=== PATIENT | female | born 1980 | race Caucasian/White ===

== ENCOUNTER 2017-10-26 07:20 | Emergency (ER) | payer MEDICAID ==
[2017-10-26] MEDS ORDERED: Ketorolac 60 MG/2 ML SDV IM ONE (07:41)
[2017-10-26] MEDS ORDERED: Ondansetron 8 MG Tab.DIS PO ONE (07:44)
[2017-10-26] MEDS ORDERED: Sodium Chloride 0.9% 1,000 ML IV ONE (08:17)
[2017-10-26] MEDS ORDERED: Acetaminophen Soln 650 MG/20.3 ML UD Cup PO ONE (08:18)
--- NOTE | 2017-10-26 09:34 | EDM.PDOC ---
ED HPI GENERAL MEDICAL PROBLEM - General Chief Complaint: Back Pain or Injury Stated Complaint: BACK PAIN Time Seen by Provider: 10/26/17 07:36 Source of Information: Reports: Patient, EMS History Limitations: Reports: Physical Impairment (back pain, not feeling good) - History of Present Illness INITIAL COMMENTS - FREE TEXT/NARRATIVE: 37 y.o.w.f, former drug addict, came to the ed deu to back pain and not feeling good. No trauma, patient vomited once [employer] and poor po intake in the past few days. Pt is a poor historian, no family is present. Pt was shouting occ in the room wanting food. She denied taking any drugs at this time. BP 138/74 Pulse 113 Temp 38.4 RR 24 Pulse ox 97% on RA Onset Date: 10/25/17 Onset Time: 08:00 Duration: Hour(s):, Getting Worse, Intermittent Location: Reports: Back, Generalized Quality: Reports: Ache, Burning, Dull, Pressure, Same as Previous Episode Improves with: Reports: None Worsens with: Reports: None Context: Reports: Sick Contact Associated Symptoms: Reports: Nausea/Vomiting back Pain Score (Numeric/FACES): 10 - Related Data Allergies Allergy/AdvReac Type Severity Reaction Status Date / Time No Known Allergies Allergy Verified 10/26/17 07:34 Home Meds: Home Meds . [Unable to Verify Home Med List] 10/26/17 [History] Past Medical History Psychiatric History: Reports: Addiction Social & Family History - Tobacco Use Smoking Status *Q: Former Smoker Used Tobacco, but Quit: Yes Month Tobacco Last Used: 10/18 - Caffeine Use Caffeine Use: Reports: None - Recreational Drug Use Recreational Drug Use: Yes Drug Use in Last 12 Months: No Recreational Drug Type: Reports: Methamphetamine ED ROS GENERAL - Review of Systems Review Of Systems: See Below Constitutional: Reports: No Symptoms HEENT: Reports: No Symptoms Respiratory: Reports: No Symptoms Cardiovascular: Reports: No Symptoms Endocrine: Reports: No Symptoms GI/Abdominal: Reports: No Symptoms : Reports: No Symptoms Musculoskeletal: Reports: No Symptoms Skin: Reports: No Symptoms Neurological: Reports: No Symptoms Psychiatric: Reports: No Symptoms Hematologic/Lymphatic: Reports: No Symptoms Immunologic: Reports: No Symptoms ED EXAM, UPPER BACK/NECK PAIN - Physical Exam Exam: See Below Exam Limited By: No Limitations General Appearance: Alert, WD/WN, Mild Distress, Obese Eye Exam: Bilateral Eye: Normal Inspection Ears Exam: Normal External Exam, Normal Canal Nose Exam: Normal Inspection, Normal Mucousa, No Blood Throat/Mouth Exam: Normal Inspection, Normal Lips, Normal Voice, No Airway Compromise Head Exam: Atraumatic, Normocephalic Neck Exam: Non-Tender, Full Range of Motion, Normal Alignment, Normal Inspection Cardiovascular/Respiratory: Regular Rate, Rhythm, No M/R/G, Normal Peripheral Pulses GI/Abdominal: Normal Bowel Sounds, Soft, Non-Tender, No Organomegaly, No Abnormal Bruit, No Mass, Pelvis Stable (Female) Exam: Deferred Rectal (Female) Exam: Deferred Back Exam: Normal Inspection, Full Range of Motion Extremities: Normal Inspection, Normal Range of Motion, Non-Tender, No Pedal Edema 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 No trauma, patient vomited once [employer] and poor po intake in the past few days. Pt is a poor historian, no family is present. Pt was shouting occ in the room wanting food. She denied taking any drugs at this time. BP 138/74 Pulse 113 Temp 38.4 RR 24 Pulse ox 97% on RA PE: obese w f with nonspecific complains and elevated temp Labs: CBC and BMP were basically nl UA and UDS were neg Impression: Viral syndrome, gen body ache dehydration Tx: Zofran, Toradol NS Reexam: Improved, pt requested to get a regular breakfast before she will leave Plan: D/C with instructions Last Recorded V/S: Last Vital Signs Temp 37.8 C 10/26/17 09:40 Pulse 99 10/26/17 09:40 Resp 16 10/26/17 09:40 BP 126/58 L 10/26/17 09:40 Pulse Ox 97 10/26/17 09:40 - Orders/Labs/Meds Labs: Laboratory Tests 10/26/17 10/26/17 10/26/17 Range/Units 07:55 07:55 08:55 WBC 9.1 (4.5-12.0) X10-3/uL RBC 4.22 (3.23-5.20) x10(6)uL Hgb 12.5 (11.5-15.5) g/dL Hct 37.7 (30.0-51.3) % MCV 89.3 (80-96) fL MCH 29.7 (27.7-33.6) pg MCHC 33.2 (32.2-35.4) g/dL RDW 13.3 (11.5-15.5) % Plt Count 184 (125-369) X10(3)uL MPV 8.3 (7.4-10.4) fL Neut % (Auto) 82.5 H (46-82) % Lymph % (Auto) 9.3 L (13-37) % [place] % (Auto) 7.1 (4-12) % Eos % (Auto) 1 (1.0-5.0) % Baso % (Auto) 0 (0-2) % Neut # (Auto) 7.6 (1.6-8.3) # Lymph # (Auto) 0.8 (0.6-5.0) # [place] # (Auto) 0.6 (0.0-1.3) # Eos # (Auto) 0.1 (0.0-0.8) # Baso # (Auto) 0.0 (0.0-0.2) # Sodium 139 (135-145) mmol/L Potassium 4.1 (3.5-5.3) mmol/L Chloride 107 (100-110) mmol/L Carbon Dioxide 21 (21-32) mmol/L BUN 15 (7-18) mg/dL Creatinine 0.9 (0.55-1.02) mg/dL Est Cr Clr Drug Dosing 77.76 mL/min Estimated GFR (MDRD) > 60 (>60) BUN/Creatinine Ratio 16.7 (9-20) Glucose 101 (80-116) mg/dL Calcium 8.4 L (8.6-10.2) mg/dL Urine Color Yellow (YELLOW) Urine Appearance Slightly cloudy (CLEAR) Urine pH 5.0 (5.0-6.5) Ur Specific [place] 1.020 (1.010-1.025) Urine Protein Trace (NEGATIVE) mg/dL Urine Glucose (UA) Normal (NEGATIVE) mg/dL Urine Ketones Negative (NEGATIVE) mg/dL Urine Occult Blood Large H (NEGATIVE) Urine Nitrite Negative (NEGATIVE) Urine Bilirubin Negative (NEGATIVE) Urine Urobilinogen Normal (NEGATIVE) mg/dL Ur Leukocyte Esterase Negative (NEGATIVE) Urine RBC 20-30 H (0) Urine WBC 0-5 (0) Ur Squamous Epith Cells Moderate H (NS,R,O) Urine Bacteria Moderate H (NS) Urine Opiates Screen (NEGATIVE) Ur Oxycodone Screen (NEGATIVE) Ur Propoxyphene Screen (NEGATIVE) Ur Barbituates Screen (NEGATIVE) Ur Tricyclics Screen (NEGATIVE) Ur Phencyclidine Scrn (NEGATIVE) Ur Amphetamine Screen (NEGATIVE) Urine MDMA Screen (NEGATIVE) U Benzodiazepines Scrn (NEGATIVE) U Cocaine Metab Screen (NEGATIVE) U Marijuana (THC) Screen (NEGATIVE) 10/26/17 Range/Units 08:55 WBC (4.5-12.0) X10-3/uL RBC (3.23-5.20) x10(6)uL Hgb (11.5-15.5) g/dL Hct (30.0-51.3) % MCV (80-96) fL MCH (27.7-33.6) pg MCHC (32.2-35.4) g/dL RDW (11.5-15.5) % Plt Count (125-369) X10(3)uL MPV (7.4-10.4) fL Neut % (Auto) (46-82) % Lymph % (Auto) (13-37) % [place] % (Auto) (4-12) % Eos % (Auto) (1.0-5.0) % Baso % (Auto) (0-2) % Neut # (Auto) (1.6-8.3) # Lymph # (Auto) (0.6-5.0) # [place] # (Auto) (0.0-1.3) # Eos # (Auto) (0.0-0.8) # Baso # (Auto) (0.0-0.2) # Sodium (135-145) mmol/L Potassium (3.5-5.3) mmol/L Chloride (100-110) mmol/L Carbon Dioxide (21-32) mmol/L BUN (7-18) mg/dL Creatinine (0.55-1.02) mg/dL Est Cr Clr Drug Dosing mL/min Estimated GFR (MDRD) (>60) BUN/Creatinine Ratio (9-20) Glucose (80-116) mg/dL Calcium (8.6-10.2) mg/dL Urine Color (YELLOW) Urine Appearance (CLEAR) Urine pH (5.0-6.5) Ur Specific [place] (1.010-1.025) Urine Protein (NEGATIVE) mg/dL Urine Glucose (UA) (NEGATIVE) mg/dL Urine Ketones (NEGATIVE) mg/dL Urine Occult Blood (NEGATIVE) Urine Nitrite (NEGATIVE) Urine Bilirubin (NEGATIVE) Urine Urobilinogen (NEGATIVE) mg/dL Ur Leukocyte Esterase (NEGATIVE) Urine RBC (0) Urine WBC (0) Ur Squamous Epith Cells (NS,R,O) Urine Bacteria (NS) Urine Opiates Screen Negative (NEGATIVE) Ur Oxycodone Screen Negative (NEGATIVE) Ur Propoxyphene Screen Negative (NEGATIVE) Ur Barbituates Screen Negative (NEGATIVE) Ur Tricyclics Screen Negative (NEGATIVE) Ur Phencyclidine Scrn Negative (NEGATIVE) Ur Amphetamine Screen Negative (NEGATIVE) Urine MDMA Screen Negative (NEGATIVE) U Benzodiazepines Scrn Negative (NEGATIVE) U Cocaine Metab Screen Negative (NEGATIVE) U Marijuana (THC) Screen Negative (NEGATIVE) Meds: Medications Discontinued Medications Generic Name Dose Route Start Last Admin Trade Name Jung PRN Reason Stop Dose Admin Acetaminophen 650 mg 10/26/17 08:18 10/26/17 10:01 Tylenol PO 10/26/17 08:19 Not Given ONETIME ONE Sodium Chloride 1,000 mls @ 999 mls/hr 10/26/17 08:17 10/26/17 08:25 Normal Saline IV 10/26/17 09:17 999 mls/hr .BOLUS ONE Administration Ketorolac Tromethamine 60 mg 10/26/17 07:41 10/26/17 07:56 Toradol IM 10/26/17 07:42 60 mg ONETIME ONE Administration Ondansetron HCl 8 mg 10/26/17 07:44 10/26/17 07:56 Zofran Odt PO 10/26/17 07:45 8 mg ONETIME ONE Administration Departure - Departure Time of Disposition: 09:32 Disposition: Home, Self-Care 01 Condition: Good Clinical Impression: Viral syndrome - Discharge Information Instructions: Fever, Adult, Viral Illness, Adult Referrals: PCP,None [Primary Care Provider] - Forms: ED Department Discharge, ED Return to Work/School Form Additional Instructions: please increase water intake, please f/u with your PMD, keep the temp below 100F with motrin and tylenol. Motrin for pain, please f/u with your PMD, come back if your symptoms get worse acutely
== END 2017-10-26 09:45 | disposition home or self-care (01) ==
LOC: FB.ED 07:20
DX: B34.9 Viral infection, unspecified (principal); E86.0 Dehydration; Z87.891 Personal history of nicotine dependence
CPT/HCPCS: 36415; 80048; 80305; 81001; 85025; 96360; 96372; 99283; 99284; A9270; J1885; J7040; J7030

== ENCOUNTER 2017-10-27 04:10 | Emergency (ER) | payer SELFPAY ==
[2017-10-27] MEDS ORDERED: Acetaminophen 325 MG Tab PO ONE (04:18)
[2017-10-27] MEDS ORDERED: Ibuprofen 600 MG Tab ONE (04:23)
[2017-10-27] MEDS ORDERED: Ibuprofen 600 MG Tab PO ONE (04:24)
[2017-10-27] MEDS ORDERED: Ondansetron 8 MG Tab.DIS PO ONE (05:12)
--- NOTE | 2017-10-27 05:39 | EDM.PDOC ---
ED HPI GENERAL MEDICAL PROBLEM - General Chief Complaint: Fever Stated Complaint: TROUBLE BREATHING Time Seen by Provider: 10/27/17 04:10 Source of Information: Reports: Patient, EMS History Limitations: Reports: No Limitations - History of Present Illness INITIAL COMMENTS - FREE TEXT/NARRATIVE: 37 y.o.w.f came by EMS because she does not feel well. Pt was seen yesterday by myself when she had a complete W/U, She did not have nasal congestions. Pt received toradol, she was d'c'd with flu like symptoms, viral syndrome. She requested a meal before D/C. Today, the patent came again this am by EMS stating she does not feel well. She did not follow D/C instruction but was sleeping as I went into the exam room. No SOB, No N/V/D BP 140/85 pulse 78 RR 20 Pulse ox 98% on RA Temp 38.8 Onset: Today Onset Date: 10/27/17 Onset Time: 01:00 Duration: Hour(s):, Intermittent Location: Reports: Generalized (not feeling good) Quality: Reports: Same as Previous Episode (not feeling good) Severity: Mild Improves with: Reports: None Worsens with: Reports: None Context: Reports: Sick Contact Lower back pain Pain Score (Numeric/FACES): 10 - Related Data Allergies Allergy/AdvReac Type Severity Reaction Status Date / Time No Known Allergies Allergy Verified 10/27/17 04:13 Home Meds: Home Meds Gabapentin [Neurontin] 100 mg PO DAILY 10/27/17 [History] Levothyroxine [Sythroid] 100 mcg PO DAILY 10/27/17 [History] Oseltamivir [Tamiflu] 75 mg PO BID #10 cap 10/27/17 [Rx] Past Medical History 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 History: Psychiatric History: Reports: Addiction Endocrine/Metabolic History: Reports: Hypothyroidism, Obesity/BMI 30+ - Infectious Disease History Infectious Disease History: Reports: Chicken Pox, Measles, Mumps - Past Surgical History Head Surgeries/Procedures: Reports: None Social & Family History - Family History Family Medical History: Noncontributory - Tobacco Use Smoking Status *Q: Former Smoker Used Tobacco, but Quit: Yes Month Tobacco Last Used: 1yr ago - Caffeine Use Caffeine Use: Reports: Coffee, Soda - Recreational Drug Use Recreational Drug Use: No Drug Use in Last 12 Months: No Recreational Drug Type: Reports: Methamphetamine ED ROS ENT - Review of Systems Review Of Systems: See Below Constitutional: Reports: Fever, Other (not feeling good) HEENT: Reports: No Symptoms Respiratory: Reports: No Symptoms Cardiovascular: Reports: No Symptoms Endocrine: Reports: No Symptoms GI/Abdominal: Reports: No Symptoms : Reports: No Symptoms Musculoskeletal: Reports: No Symptoms Skin: Reports: No Symptoms Neurological: Reports: No Symptoms Psychiatric: Reports: No Symptoms Hematologic/Lymphatic: Reports: No Symptoms Immunologic: Reports: No Symptoms ED EXAM, ENT - Physical Exam Exam: See Below Exam Limited By: Other (not feeling good) General Appearance: Alert, WD/WN, Obese Eye Exam: Bilateral Eye: Normal Inspection Ears: Normal External Exam, Normal Canal Nose: Normal Inspection, Normal Mucousa, No Blood Mouth/Throat: Normal Inspection, Normal Gums, Normal Lips, Normal Oropharynx Head: Atraumatic, Normocephalic Neck: Normal Inspection, Supple, Non-Tender, Full Range of Motion Respiratory/Chest: No Respiratory Distress, Lungs Clear Cardiovascular: Normal Peripheral Pulses, Regular Rate, Rhythm, No Edema, No Gallop, No Rub GI/Abdominal: Normal Bowel Sounds, Soft, Non-Tender, No Organomegaly (Female) Exam: Deferred Rectal (Female) Exam: Deferred Back: Normal Inspection, Full Range of Motion Extremities: Normal Inspection, Normal Range of Motion, Non-Tender, No Pedal Edema Neurological: Alert, Oriented, CN II-XII Intact, Normal Cognition, Normal Gait Psychiatric: Anxious Skin: Warm, Dry, Intact, Normal Color, No Rash Lymphatic: No Adenopathy Course - Vital Signs Text/Narrative:: 37 y.o.w.f came by EMS because she does not feel well. Pt was seen yesterday by myself when she had a complete W/U, She did not have nasal congestions. Pt received toradol, she was d'c'd with flu like symptoms, viral syndrome. She requested a meal before D/C. Today, the patent came again this am by EMS stating she does not feel well. She did not follow D/C instruction but was sleeping as I went into the exam room. No SOB, No N/V/D BP 140/85 pulse 78 RR 20 Pulse ox 98% on RA Temp 38.8 PE: Obese 37 Y.O W F IN NAD, stating she does not feel well. Labs: Influenza B was pos RSV was neg Impression: Influenza B Tx: [place] as a prescription, Tylenol, Motrin Reexam: Imporeved Plan: D/C with insytructions. Last Recorded V/S: Last Vital Signs Temp 37.9 C 10/27/17 05:45 Pulse 93 10/27/17 04:10 Resp 20 10/27/17 05:45 BP 127/46 L 10/27/17 05:45 Pulse Ox 98 10/27/17 05:45 - Orders/Labs/Meds Meds: Medications Discontinued Medications Generic Name Dose Route Start Last Admin Trade Name Jung PRN Reason Stop Dose Admin Acetaminophen 650 mg 10/27/17 04:18 10/27/17 04:26 Tylenol PO 10/27/17 04:19 650 mg NOW ONE Administration Ibuprofen 600 mg 10/27/17 04:24 10/27/17 04:25 Motrin PO 10/27/17 04:25 600 mg ONETIME ONE Administration Ibuprofen Confirm 10/27/17 04:23 10/27/17 04:29 Motrin Administered 10/27/17 04:24 Not Given Dose 600 mg .ROUTE .STK-MED ONE Ondansetron HCl 8 mg 10/27/17 05:12 10/27/17 05:14 Zofran Odt PO 10/27/17 05:13 8 mg ONETIME ONE Administration Departure - Departure Time of Disposition: 05:35 Disposition: Home, Self-Care 01 Condition: Good Clinical Impression: Influenza B - Discharge Information Prescriptions: Oseltamivir [Tamiflu] 75 mg PO BID #10 cap Instructions: Influenza, Adult, [id number] Referrals: PCP,None [Primary Care Provider] - Forms: ED Department Discharge Additional Instructions: Please take Tamiflu as recommended, Motrin & Tylenol as needed for pain or fever , please follow up with regular MD at clinic next week for recheck, keep temp below 100F. come back if your symptoms get worse acutely
== END 2017-10-27 06:00 | disposition home or self-care (01) ==
LOC: FB.ED 04:10
DX: J10.1 Influenza due to other identified influenza virus with other respiratory manifestations (principal); E03.9 Hypothyroidism, unspecified; Z79.899 Other long term (current) drug therapy; Z87.891 Personal history of nicotine dependence
CPT/HCPCS: 87804; 87807; 99284; A9270